=== PATIENT | male | born 1990 | race Caucasian/White ===

== ENCOUNTER 2017-02-03 03:28 | Emergency (ER) | payer SELFPAY ==
--- NOTE | 2017-02-03 04:06 | NUR ---
PT PER FRONT STAFF WALKED IN TO REGISTER AND STATED THEY WERE FEELING BETTER AND DIDNT WANT MEDICAL ATTENTION, PT WALKED OUT WITH A STEADY GAIT PER FRONT STAFF
== END 2017-02-03 04:15 | disposition left against medical advice (07) ==
LOC: ER 03:34
DX: Z53.21 Procedure and treatment not carried out due to patient leaving prior to being seen by health care provider (principal)